=== PATIENT | male | born 1935 | race Caucasian/White ===

== ENCOUNTER 2021-01-13 09:42 | Emergency (ER) | payer MEDICARE ==
[2021-01-13] MEDS ORDERED: Ondansetron 4 MG Tab.DIS PO ONE (11:17)
[2021-01-13] MEDS ORDERED: Ketorolac 30 MG/ML SDV IM ONE (11:17)
--- NOTE | 2021-01-13 11:19 | EDM.PDOC ---
ED HPI GENERAL MEDICAL PROBLEM - General Chief Complaint: Abdominal Pain Stated Complaint: PAIN IN RIGHT SIDE Time Seen by Provider: 01/13/21 11:12 Source of Information: Reports: Patient, Family, RN Notes Reviewed History Limitations: Reports: Physical Impairment - History of Present Illness INITIAL COMMENTS - FREE TEXT/NARRATIVE: 85-year-old gentleman presents emergency department day complaint of right flank pain, he is hard of hearing difficult to obtain history from him the majority of this is obtained from his . States the pain started about 530 this morning is very intense he does have a history of nephrolithiasis. He has vomited a couple times this morning has not taken anything for the pain no abdominal surgeries. Right Abdomen Pain Score (Numeric/FACES): 8 - Related Data Allergies Allergy/AdvReac Type Severity Reaction Status Date / Time No Known Allergies Allergy Verified 01/13/21 10:34 Home Meds: Home Meds Lisinopril 20 mg PO DAILY 12/23/17 [History] Metoprolol Succinate [Toprol Xl] 50 mg PO DAILY 12/23/17 [History] Omeprazole 1 cap PO DAILY 12/23/17 [History] amLODIPine Besylate [Amlodipine Besylate] 1 tab PO DAILY 12/23/17 [History] glipiZIDE [Glipizide ER] 20 mg PO DAILY 12/23/17 [History] metFORMIN HCl [Metformin HCl ER] 1 tab PO DAILY 12/23/17 [History] Acetaminophen/HYDROcodone [HYDROcodone-Acetaminophen 5-325 MG *] 1 tab PO Q6H PRN #10 each 01/13/21 [Rx] Ketorolac [Toradol] 10 mg PO TID PRN #20 tab 01/13/21 [Rx] Tamsulosin HCl [Flomax] 0.4 mg PO DAILY #10 cap.er.24h 01/13/21 [Rx] Past Medical History HEENT History: Reports: Impaired Vision Cardiovascular History: Reports: High Cholesterol, Hypertension Gastrointestinal History: Reports: GERD Genitourinary History: Reports: Chronic Renal Insuffiency, Prostate Disorder, Renal Calculus, Renal Disease Musculoskeletal History: Reports: Arthritis Neurological History: Reports: CVA Endocrine/Metabolic History: Reports: Diabetes, Type II - Past Surgical History Head Surgeries/Procedures: Reports: None HEENT Surgical History: Reports: None Cardiovascular Surgical History: Reports: None GI Surgical History: Reports: Colonoscopy Male Surgical History: Reports: None Endocrine Surgical History: Reports: None Neurological Surgical History: Reports: None Musculoskeletal Surgical History: Reports: None Dermatological Surgical History: Reports: None Social & Family History - Tobacco Use Tobacco Use Status *Q: Former Tobacco User Used Tobacco, but Quit: Yes Month/Year Tobacco Last Used: 1969 - Caffeine Use Caffeine Use: Reports: Coffee, Soda - Alcohol Use Days Per Week of Alcohol Use: 7 Number of Drinks Per Day: 2 Total Drinks Per Week: 14 Date of Last Drink: 01/06/21 - Recreational Drug Use Recreational Drug Use: No ED ROS GENERAL - Review of Systems Review Of Systems: See Below Constitutional: Reports: No Symptoms HEENT: Reports: No Symptoms Respiratory: Reports: No Symptoms Cardiovascular: Reports: No Symptoms GI/Abdominal: Reports: Abdominal Pain, Nausea, Vomiting : Reports: No Symptoms ED EXAM, GI/ABD - Physical Exam Exam: See Below Exam Limited By: No Limitations General Appearance: Alert, WD/WN, No Apparent Distress Respiratory/Chest: No Respiratory Distress, Lungs Clear, Normal Breath Sounds, No Accessory Muscle Use, Chest Non-Tender Cardiovascular: Regular Rate, Rhythm, No Murmur GI/Abdominal Exam: Normal Bowel Sounds, Soft, No Distention, No Abnormal Bruit, No Mass, Tender (Right flank area) Course - Vital Signs Last Recorded V/S: Last Vital Signs Temp 97.5 F 01/13/21 10:29 Pulse 86 01/13/21 10:29 Resp 16 01/13/21 10:29 BP 180/90 H 01/13/21 10:29 Pulse Ox 93 L 01/13/21 10:29 - Orders/Labs/Meds Labs: Laboratory Tests 01/13/21 01/13/21 Range/Units 11:30 11:30 WBC 6.5 (4.5-11.0) K/uL RBC 4.97 (4.30-5.90) M/uL Hgb 15.3 H (12.0-15.0) g/dL Hct 43.2 (40.0-54.0) % MCV 87 (80-98) fL MCH 31 (27-31) pg MCHC 35 (32-36) % Plt Count 132 L (150-400) K/uL Neut % (Auto) 80.2 H (36-66) % Lymph % (Auto) 14.1 L (24-44) % [place] % (Auto) 4.9 (2-6) % Eos % (Auto) 0.5 L (2-4) % Baso % (Auto) 0.3 (0-1) % Sodium 141 (140-148) mmol/L Potassium 4.2 (3.6-5.2) mmol/L Chloride 104 (100-108) mmol/L Carbon Dioxide 26 (21-32) mmol/L Anion Gap 11.2 (5.0-14.0) mmol/L BUN 18 (7-18) mg/dL Creatinine 1.4 H (0.8-1.3) mg/dL Est Cr Clr Drug Dosing 41.83 mL/min Estimated GFR (MDRD) 48 L (>60) Glucose 309 H (74-106) mg/dL Calcium 9.3 (8.5-10.1) mg/dL Total Bilirubin 0.7 (0.2-1.0) mg/dL AST 25 (15-37) U/L ALT 23 (12-78) U/L Alkaline Phosphatase 81 (46-116) U/L Troponin I High Sens 5.7 (<=60.3) pg/mL Total Protein 7.3 (6.4-8.2) g/dL Albumin 4.1 (3.4-5.0) g/dL Globulin 3.2 (2.3-3.5) g/dL Albumin/Globulin Ratio 1.3 (1.2-2.2) Meds: Medications Discontinued Medications Generic Name Dose Route Start Last Admin Trade Name Freq PRN Reason Stop Dose Admin Ketorolac Tromethamine 30 mg 01/13/21 11:17 01/13/21 11:54 Ketorolac 30 Mg/Ml Sdv IM 01/13/21 11:18 30 mg ONETIME ONE Administration Ondansetron HCl 4 mg 01/13/21 11:17 01/13/21 11:55 Ondansetron 4 Mg Tab.Dis PO 01/13/21 11:18 4 mg ONETIME ONE Administration Departure - Departure Time of Disposition: 13:22 Disposition: Home, Self-Care 01 Condition: Fair Clinical Impression: Right nephrolithiasis - Discharge Information Prescriptions: Tamsulosin HCl [Flomax] 0.4 mg PO DAILY #10 cap.er.24h Acetaminophen/HYDROcodone [HYDROcodone-Acetaminophen 5-325 MG *] 1 tab PO Q6H PRN #10 each PRN Reason: Pain Ketorolac [Toradol] 10 mg PO TID PRN #20 tab PRN Reason: Pain Instructions: Kidney Stones, [id number] Referrals: Cody Courtney MD [Primary Care Provider] - Forms: ED Department Discharge Additional Instructions: Use the ketorolac for baseline pain control, use the hydrocodone for breakthrough pain, take the Flomax every day to help with the urine flow as you push your fluid and try and strain your urine to possibly capture a stone which could be used for analysis later, please followup with your primary care provider in 7-10 days if not better, please call return to the emergency department with worsening of symptoms. Sepsis Event Note (ED) - Focused Exam Vital Signs: Vital Signs Temp Pulse Resp BP Pulse Ox 01/13/21 10:29 97.5 F 86 16 180/90 H 93 L - Assessment/Plan Plan: Assessment Acuity = acute Site and laterality = right-sided nephrolithiasis Etiology = unknown Manifestations = right flank pain Location of injury = Home Lab values = CBC CMP unremarkable CT scan describes the stone above Plan He had good relief with Zofran provided prescription written for ketorolac 10 mg 1 tab p.o. 3 times daily as needed total #20, also hydrocodone 5/325 1 tab p.o. every 6 hours as needed total #10, prescription for Flomax 0.4 mg 1 tablet p.o. daily total #10 follow-up primary care 7 to 10 days if not better This note was dictated using [employer] voice recognition software please call with any questions on syntax or grammar.
--- NOTE | 2021-01-13 12:30 | CRLCT ---
For Patients: As a result of the Century Cures Act, medical imaging exams and procedure reports are released immediately into your electronic medical record. You may view this report before your referring provider. If you have questions, please contact your health care provider. INDICATION: Right flank pain. TECHNIQUE: CT of the abdomen and pelvis without intravenous contrast. Coronal and sagittal reconstructions. COMPARISON: None. FINDINGS: The unenhanced liver, gallbladder, spleen, pancreas, and adrenal glands are normal in appearance. No biliary dilation. Bilateral renal cysts. There is a 1.0 cm exophytic lesion arising from the upper pole of the left kidney medially which measures 27 HU (series 2, image 72). There is a 3 mm obstructing stone at the right ureterovesicular junction with mild upstream right hydroureteronephrosis and perinephric fat stranding (series 2, image 185). No left hydronephrosis or ureteral dilation. Tiny nonobstructing left renal calyceal stone. The unenhanced bladder is normal in appearance. Prostate calcifications. No bowel dilation. Moderate amount of stool in the rectum. There is a diminutive appendix which is negative. No intraperitoneal free air or fluid. Aortoiliac vascular calcifications. No lymphadenopathy. Advanced degenerative changes of the spine. Healing fractures of the right lateral 7th-10th ribs. Mild right basilar atelectasis. There are patchy and streaky opacities in the left lower lobe and lingula which may be infectious/inflammatory versus atelectasis. Coronary artery calcifications. IMPRESSION: 1. 3 mm obstructing stone at the right UVJ with mild right hydroureteronephrosis. 2. Indeterminate 1.0 cm lesion in the upper pole of the left kidney medially. This could be further evaluated with nonemergent renal ultrasound. 3. Patchy and streaky opacities in the left lung base may be infectious/inflammatory versus atelectasis. 4. Healing fractures of the right lateral 7th-10th ribs. Please note that all CT scans at this facility use dose modulation, iterative reconstruction, and/or weight-based dosing when appropriate to reduce radiation dose to as low as reasonably achievable. Dictated by Vani Reid MD @ 01/13/2021 12:28:47 PM (Electronically Signed)
== END 2021-01-13 13:42 | disposition home or self-care (01) ==
LOC: JP.ED 09:42
DX: N13.2 Hydronephrosis with renal and ureteral calculous obstruction (principal); I12.9 Hypertensive chronic kidney disease with stage 1 through stage 4 chronic kidney disease, or unspecified chronic kidney disease; E11.22 Type 2 diabetes mellitus with diabetic chronic kidney disease; N18.9 Chronic kidney disease, unspecified; M19.90 Unspecified osteoarthritis, unspecified site; Z87.891 Personal history of nicotine dependence; Z79.84 Long term (current) use of oral hypoglycemic drugs; Z79.899 Other long term (current) drug therapy
CPT/HCPCS: 36415; 74176; 80053; 84484; 85025; 96372; 99284; A9270; J1885

== ENCOUNTER 2024-02-14 10:18 | Inpatient (IN) | payer MEDICARE ==
[2024-02-14] MEDS ORDERED: Sodium Chloride 0.9% 10 ML Syringe FLUSH PRN ×2 (11:08→16:13)
[2024-02-14 11:16] LABS: BASOPHILS ABSOLUTE AUTO 0.04 K/uL (0.00-0.10); BASOPHILS PERCENT AUTO 0.3 % (0.1-1.3); EOSINOPHILS PERCENT AUTO 0.2 % (0.0-5.4); HEMATOCRIT 45.9 % (38.4-49.7); HEMOGLOBIN 16.6 g/dL (12.9-16.9); IMMATURE GRAN ABSOLUTE AUTO 0.03 K/uL (0.00-0.23); IMMATURE GRAN PERCENT AUTO 0.3 % (0.0-0.7); LYMPHOCYTES PERCENT AUTO 6.1 % (11.4-47.7); MEAN CORPUSCULAR HEMOGLOBIN 31.4 pg (31.6-35.5); MEAN CORPUSCULAR HGB CONC 36.2 g/dL (31.6-35.5); MEAN CORPUSCULAR VOLUME 86.8 fL (81.4-99.0); MONOCYTES ABSOLUTE AUTO 0.35 K/uL (0.20-0.90); NEUTROPHILS ABSOLUTE AUTO 10.36 K/uL (1.0-7.6); NEUTROPHILS PERCENT AUTO 90.1 % (40.0-78.1); PLATELET COUNT,PLT 198 K/uL (130-375); RED BLOOD CELL COUNT 5.29 M/uL (4.14-5.76); WHITE BLOOD CELL COUNT,WBC 11.5 K/uL (3.2-11.0)
[2024-02-14 11:17] LABS: EOSINOPHILS ABSOLUTE AUTO 0.02 K/uL (0.00-0.40)
[2024-02-14 11:33] LABS: LACTIC ACID 5.5 mmol/L (0.4-2.0)
[2024-02-14 11:38] LABS: C-REACTIVE PROTEIN 1.31 mg/dL (<0.50); CALCIUM 9.6 mg/dL (8.5-10.1); CREATININE 1.9 mg/dL (0.8-1.3); EST CRCL DRUG DOSING (CG) 29.05 mL/min; POTASSIUM,K 4.1 mmol/L (3.6-5.2)
[2024-02-14] MEDS: Sodium Chloride 0.9% 1,000 ML IV ONE ×2 (11:38→14:43)
[2024-02-14 11:40] LABS: ANION GAP 23.1 mmol/L (5.0-14.0)
[2024-02-14] MEDS: Meropenem 1 GM in Sodium Chloride 0.9% 100 ML IV ONE (11:43)
[2024-02-14 11:55] LABS: ALBUMIN 4.1 g/dL (3.4-5.0); BILIRUBIN DIRECT 0.2 mg/dL (0.0-0.2); BILIRUBIN INDIRECT 0.8; PROTEIN TOTAL,TP 8.1 g/dL (6.4-8.2)
[2024-02-14] MEDS: Iopamidol 612 MG/ML 100 ML Bottle IV SCH (12:39)
[2024-02-14] MEDS: Sodium Chloride 0.9% 80 ML IV SCH (12:39)
[2024-02-14] MEDS: Ondansetron 4 MG/2 ML SDV IVPUSH ONE (13:46)
[2024-02-14 14:32] LABS: APPEARANCE,URINE CLEAR (CLEAR); BILIRUBIN,URINE NEGATIVE (NEGATIVE); COLOR,URINE YELLOW (YELLOW); GLUCOSE,URINE 500 mg/dL (NEGATIVE); KETONES,URINE 40 mg/dL (NEGATIVE); LEUKOCYTE ESTERASE,URINE NEGATIVE (NEGATIVE); NITRITE,URINE NEGATIVE (NEGATIVE); OCCULT BLOOD,URINE MODERATE (NEGATIVE); PROTEIN,URINE 100 mg/dL (NEGATIVE); UROBILINOGEN,URINE 0.2 EU/dL (0.2-1.0)
[2024-02-14 14:43] LABS: RBC,URINE 20-30 (0-5)
[2024-02-14 14:44] LABS: AMORPHOUS SEDIMENT,URINE FEW; BACTERIA,URINE FEW; EPITHELIAL CELLS,URINE RARE; MUCUS,URINE NOT SEEN
[2024-02-14] MEDS: metroNIDAZOLE/Normal Saline 500 MG in Premix Bag 1 BAG IV SCH (16:00)
[2024-02-14] MEDS ORDERED: Acetaminophen 325 MG Tab PO PRN (16:13)
[2024-02-14] MEDS ORDERED: Glucose Gel 15 GM in 37.5 GM Tube PO PRN (16:13)
[2024-02-14] MEDS ORDERED: 50% Dextrose in Water 50 ML Syringe IV PRN (16:13)
[2024-02-14] MEDS: Enoxaparin 30 MG/0.3 ML Syringe SUBCUT SCH (16:58)
[2024-02-14] MEDS: Insulin Lispro 100 Unit/ML 3 ML KwikPen SUBCUT SCH (16:58)
[2024-02-14] MEDS: Ondansetron 4 MG/2 ML SDV IV PRN (16:58)
[2024-02-14] MEDS: Ciprofloxacin in D5W 400 MG in Premix Bag 1 BAG IV SCH (17:05)
[2024-02-14] MEDS: Sodium Chloride 0.9% 1,000 ML IV SCH (19:20)
[2024-02-15 06:51] LABS: HEMATOCRIT 37.9 % (38.4-49.7); HEMOGLOBIN 13.9 g/dL (12.9-16.9); MEAN CORPUSCULAR HEMOGLOBIN 31.9 pg (31.6-35.5); MEAN CORPUSCULAR HGB CONC 36.7 g/dL (31.6-35.5); MEAN CORPUSCULAR VOLUME 86.9 fL (81.4-99.0); RED BLOOD CELL COUNT 4.36 M/uL (4.14-5.76); WHITE BLOOD CELL COUNT,WBC 5.8 K/uL (3.2-11.0)
[2024-02-15 07:06] LABS: CALCIUM 8.6 mg/dL (8.5-10.1); CREATININE 1.4 mg/dL (0.8-1.3); EST CRCL DRUG DOSING (CG) 39.43 mL/min; MAGNESIUM 1.4 mg/dL (1.8-2.4); POTASSIUM,K 3.7 mmol/L (3.6-5.2)
[2024-02-15 07:07] LABS: ANION GAP 12.7 mmol/L (5.0-14.0)
[2024-02-15] MEDS: Aspirin 81 MG Tab.EC PO SCH (08:22)
[2024-02-15] MEDS: Tamsulosin 0.4 MG Cap.ER PO SCH (08:22)
[2024-02-15] MEDS: Pantoprazole 40 MG Tab.CR PO SCH (08:22)
[2024-02-15] MEDS: Magnesium Oxide 400 MG Tab PO SCH (08:23)
[2024-02-15] MEDS: Metoprolol Succinate 50 MG Tab.ER PO SCH (08:24)
[2024-02-15] MEDS: Lisinopril 20 MG Tab PO SCH (08:24)
[2024-02-15] MEDS: Magnesium Sulfate/Water Premix 2 GM in Premix Bag 1 BAG IV SCH (10:25)
[2024-02-16 05:18] LABS: CALCIUM 7.6 mg/dL (8.5-10.1); CREATININE 1.3 mg/dL (0.8-1.3); EST CRCL DRUG DOSING (CG) 41.94 mL/min; MAGNESIUM 2.4 mg/dL (1.8-2.4); POTASSIUM,K 3.4 mmol/L (3.6-5.2)
[2024-02-16 05:19] LABS: ANION GAP 11.4 mmol/L (5.0-14.0)
[2024-02-16] MEDS: Potassium Chloride 20 MEQ Tab.ER PO ONE (09:17)
== END 2024-02-16 12:10 | disposition home or self-care (01) | DRG 392 ==
LOC: JP.ED 10:18 → JP.MS 15:01
PROVIDERS: ADMIT Hospitalist; ATTEND Hospitalist
DX: K52.9 Noninfective gastroenteritis and colitis, unspecified (principal); E87.20 Acidosis, unspecified; N17.9 Acute kidney failure, unspecified; E86.0 Dehydration; N18.9 Chronic kidney disease, unspecified; H54.7 Unspecified visual loss; E78.00 Pure hypercholesterolemia, unspecified; K21.9 Gastro-esophageal reflux disease without esophagitis; I12.9 Hypertensive chronic kidney disease with stage 1 through stage 4 chronic kidney disease, or unspecified chronic kidney disease; M19.90 Unspecified osteoarthritis, unspecified site; R09.02 Hypoxemia; E11.22 Type 2 diabetes mellitus with diabetic chronic kidney disease; R29.6 Repeated falls; N18.32 Chronic kidney disease, stage 3b; F03.90 Unspecified dementia, unspecified severity, without behavioral disturbance, psychotic disturbance, mood disturbance, and anxiety; Z79.899 Other long term (current) drug therapy; Z79.84 Long term (current) use of oral hypoglycemic drugs; Z79.82 Long term (current) use of aspirin; Z86.73 Personal history of transient ischemic attack (TIA), and cerebral infarction without residual deficits
CPT/HCPCS: 36415; 70450; 70486; 71260; 72125; 74177; 76377; 80048; 80076; 81001; 83605 ×2; 84145; 85025; 86140; 87040 ×2; 87086; 87428; 96365; 96375; 99285; J2185; J2405; J3490; J7030 ×2; Q9967; 82947; 83735; 85027; 97110-GP; 97161-GP; 99223; 99233; 99238; 99284; A9270-GY; C1758; J0744; J1650; J1815; J1836; J3475